=== PATIENT | male | born 1960 | race Caucasian/White ===

== ENCOUNTER 2019-04-26 14:11 | Outpatient (CLI) | payer MEDICAID, SELFPAY ==
--- NOTE | 2019-04-26 02:15 | XR_ITS ---
WS: [id number] KUB, 04/26/2019 Clinical Data: kidney stones Comparison: KUB, 01/05/2018. Findings: No abnormal intraabdominal masses or calcifications are seen. There is no dilatated small bowel or ev idence of obstruction. No renal or ureteral calculi are seen. There is osteoarthritic change with spurring at the L1-L4 leve ls. XR/XR KUB [id number] Impression: Negative KUB.
== END 2019-04-26 14:12 | disposition home or self-care (01) ==
LOC: RAD 14:16
PROVIDERS: PCP Family Medicine; Visit Provider Urology
DX: N20.0 Calculus of kidney (principal)
CPT/HCPCS: 74018; 81001

== ENCOUNTER 2022-05-23 19:26 | Emergency (ER) | payer MEDICARE, MEDICAID, SELFPAY ==
[2022-05-23 19:31] VITALS: BP 135/97; PULSE 86; RESP 18; TEMP 36.9; O2SAT 97
--- NOTE | 2022-05-23 19:31 | ECG_ITS ---
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 Measurements Intervals [place] Rate: 86 P: 56 IA: 178 QRS: 41 QRSD: 85 T: 77 QT: 315 QTc: 377 Interpretive Statements SINUS RHYTHM No previous ECG available for comparison Electronically Signed On 05-23-2022 23:43:53 DIRECTOR OF VITAL STATISTICS by Concepcion Lopez M.D. [id number] f
--- NOTE | 2022-05-23 19:39 | XRR_ITS ---
PROCEDURE INFORMATION: Exam: XR Chest Exam date and time: 05/23/2022 8:14 PM Age: 62 years old Clinical indication: Chest wall pain and other: Heart flutter; Additional info: Cp TECHNIQUE: Imaging protocol: Radiologic exam of the chest. Views: 1 view. COMPARISON: CR XR KUB [id number] 04/26/2019 2:26 PM FINDINGS: Lungs: Unremarkable. No consolidation. Pleural spaces: Unremarkable. No pleural effusion. No pneumothorax. Heart/Mediastinum: Unremarkable. No cardiomegaly. Bones/joints: Unremarkable. XR/XR chest 1V portable [id number] IMPRESSION: No acute findings.
[2022-05-23 20:37] LABS: Basophils # 0.1 10^3/uL (0.0-0.1); Basophils % 0.8 %; Eosinophils # 0.2 10^3/uL (0.0-0.8); Eosinophils % 1.5 %; Hematocrit 47.4 % (42.0-52.0); Hemoglobin 15.2 g/dL (11.7-16.6); Lymphocytes # 2.5 10^3/uL (0.8-4.8); Lymphocytes % 23.4 %; Mean Corpuscular HGB Conc 32.1 g/dL (30.0-36.0); Mean Corpuscular Hemoglobin 27.8 pg (28.0-34.0); Mean Corpuscular Volume 86.8 fl (80-94); Mean Platelet Volume 9.3 fL (7.4-10.4); Monocytes # 0.8 10^3/uL (0.2-0.9); Monocytes % 7.9 %; Neutrophils # 6.98 10^3/uL (1.8-7.7); Neutrophils % 66.1 %; Nucleated Red Blood Cells % 0 %; Platelet Count 274 10^3/cmm (130-400); Red Blood Count 5.46 10^6/uL (4.1-5.3); Red Cell Distribution Width 14.4 % (12.1-15.1); White Blood Count 10.6 10^3/uL (4.0-10.0)
--- NOTE | 2022-05-23 20:56 | W.ED.CHESTPA ---
HPI - Chest Pain General: Chief Complaint: Chest Pain Stated Complaint: CP; heart flutters Time Seen by Provider: 05/23/22 20:29 Source: patient Mode of arrival: ambulatory Limitations: no limitations History of Present Illness: 62-year-old male states has been having some intermittent chest pains over the last 2 to 3 months he states he is think about it and it is typically after he eats spicy foods he states the last time he had he had eaten [place] he states that tonight he had eaten some cheese dip with spicy Rotella on it and he started having a burning sensation in his chest he states that since resolved he denies any dyspnea denies any nausea denies any diaphoresis. Associated symptoms: Deny abdominal pain, dyspnea, fever(s), nausea or vomiting Review of Systems Const: Denies: fever(s), chills, body aches or change in appetite Eyes: Denies: blurry vision or eye discomfort ENMT: Denies: throat pain or dental pain Card: Reports: chest pain Resp: Denies: dyspnea GI: Denies: abdominal pain, nausea, vomiting or diarrhea : Denies: dysuria Musc: Denies: neck pain or back pain Skin/Breast: Denies: rash Neuro: Denies: headache(s) Psych: Denies: depression Geoffrey/Lymph: Denies: easy bruising All/Imm: Denies: urticaria PFSH ED PFSH: Medical History (Updated 05/23/22 @ 21:24 by Gilberto Perez MD) Benign prostatic hyperplasia with lower urinary tract symptoms Renal calculus, left ESWL x 2 in 2018. Status post extracorporeal shock wave therapy Surgical History History of repair of rotator cuff RIGHT History of umbilical hernia repair Family History Father , STOMACH CANCER No problems noted. Mother Hypertension Social History Smoking and tobacco status: former smoker Alcohol intake: never Adopted: No Caregiver/support person: No Lives independently: No Household members: spouse Marital status: Current occupational status: other Physical Exam Const: COMMON NORMALS: no acute distress, patient oriented x3 and healthy appearing HENMT: COMMON NORMALS: normocephalic and atraumatic HEAD & SCALP: normocephalic and atraumatic Eye: COMMON NORMALS: Equal, round and reactive pupils present and EOMs intact bilaterally PUPIL: Yes Equal, round and reactive pupils present Neck/C-Spine: COMMON NORMALS: full ROM and supple Chest: COMMONS NORMALS: normal inspection of the chest and normal palpation of entire chest wall Resp: COMMON NORMALS: normal respiratory effort, No retractions, No use of accessory muscles and clear to auscultation bilaterally AUSCULTATION: clear to auscultation bilaterally Cardio: COMMON NORMALS: regular rate, regular rhythm and No murmurs present (Cardio) RATE: regular rate RHYTHM: regular rhythm GI: COMMON NORMALS: Normal to inspection, nondistended, normoactive bowel sounds present, Soft to palpation, non-tender and no masses PALPATION: Yes Soft to palpation Extremity: COMMON NORMALS: normal to inspection and full ROM Neuro: COMMON NORMALS: patient oriented x3, moves all extremities and no focal motor deficits Psych: COMMON NORMALS: mental status grossly normal, Normal thought process present and cooperative THOUGHT PROCESS: Normal thought process present Skin: COMMON NORMALS: no rashes or lesions noted and no wounds GENERAL SKIN EXAM: no rashes or lesions noted Course Vital Signs: Vital signs: Vital Signs Temperature 98.4 F 05/23/22 19:31 Pulse Rate 86 05/23/22 19:31 Respiratory Rate 18 05/23/22 19:31 Blood Pressure 135/97 05/23/22 19:31 Pulse Oximetry 97 05/23/22 19:31 Oxygen Delivery Me thod 05/23/22 19:31 MDM - Chest Pain Medical Decision Making Patient presents here with chest pain that is likely a gastritis its only happened after he had spicy foods he is pain-free currently we will place him on Protonix he is well-appearing here currently he is stable for discharge he is to follow-up with PCP and return if worsening. Lab Data 05/23/22 20:18 05/23/22 20:18 Radiology Impressions Chest X-Ray 05/23/22 19:39 IMPRESSION: No acute findings. Laboratory Results WBC 10.6 10^3/uL (4.0-10.0) H 05/23/22 20:18 RBC 5.46 10^6/uL (4.1-5.3) H 05/23/22 20:18 Hgb 15.2 g/dL (11.7-16.6) 05/23/22 20:18 Hct 47.4 % (42.0-52.0) 05/23/22 20:18 MCV 86.8 fl (80-94) 05/23/22 20:18 MCH 27.8 pg (28.0-34.0) L 05/23/22 20:18 MCHC 32.1 g/dL (30.0-36.0) 05/23/22 20:18 RDW 14.4 % (12.1-15.1) 05/23/22 20:18 Plt Count 274 10^3/cmm (130-400) 05/23/22 20:18 MPV 9.3 fL (7.4-10.4) 05/23/22 20:18 Neut % (Auto) 66.1 % 05/23/22 20:18 Lymph % (Auto) 23.4 % 05/23/22 20:18 [place] % (Auto) 7.9 % 05/23/22 20:18 Eos % (Auto) 1.5 % 05/23/22 20:18 Baso % (Auto) 0.8 % 05/23/22 20:18 Neut # (Auto) 6.98 10^3/uL (1.8-7.7) 05/23/22 20:18 Lymph # (Auto) 2.5 10^3/uL (0.8-4.8) 05/23/22 20:18 [place] # (Auto) 0.8 10^3/uL (0.2-0.9) 05/23/22 20:18 Eos # (Auto) 0.2 10^3/uL (0.0-0.8) 05/23/22 20:18 Baso # (Auto) 0.1 10^3/uL (0.0-0.1) 05/23/22 20:18 Nucleated RBC % (auto) 0 % 05/23/22 20:18 Nucleated RBCs # 0.0 /100WBC 05/23/22 20:18 Sodium 134 mmol/L (136-145) L 05/23/22 20:18 Potassium 4.5 mmol/L (3.5-5.1) 05/23/22 20:18 Chloride 94 mmol/L (98-107) L 05/23/22 20:18 Carbon Dioxide 28 mmol/L (22-29) 05/23/22 20:18 Anion Gap 16.5 (5-19) 05/23/22 20:18 BUN 14 mg/dL (8-23) 05/23/22 20:18 Creatinine 1.0 mg/dL (0.7-1.2) 05/23/22 20:18 GFR Calculation 75.5 mL/min (90-130) L 05/23/22 20:18 Glucose 95 mg/dL (65-115) 05/23/22 20:18 Calculated Osmolality 278 mOsm/kg (285-295) L 05/23/22 20:18 Calcium 10.5 mg/dL (8.5-10.5) 05/23/22 20:18 Total Bilirubin 0.3 mg/dL (0.15-1.2) 05/23/22 20:18 AST 15 U/L (0-40) 05/23/22 20:18 ALT 25 U/L (0-41) 05/23/22 20:18 Alkaline Phosphatase 55 U/L (40-130) 05/23/22 20:18 Troponin T Baseline 8 ng/L (0-15) 05/23/22 20:18 Total Protein 7.6 g/dL (6.6-8.7) 05/23/22 20:18 Albumin 4.2 g/dL (3.5-5.2) 05/23/22 20:18 Globulin 3.4 g/dL (1.3-4.6) 05/23/22 20:18 EKG Data EKG 1: I personally reviewed and interpreted this EKG as follows: EKG interpretation date: 05/23/22 EKG interpretation time: 19:31 Interpretation: nsr hr [address] or twave abnormalities qrs 85 qtc 358 Discharge Plan Discharge Patient Disposition: Home Clinical Impression: Chest pain Condition: Stable Prescriptions: New Protonix 40 mg tablet,delayed release (DR/EC) 40 mg PO DAILY Qty: 60 0RF Discontinued ranitidine HCl 150 mg capsule 150 mg PO DAILY No Action lisinopril 40 mg tablet 40 mg PO DAILY nitrofurantoin 100 mg capsule 100 mg PO BID tamsulosin 0.4 mg capsule 0.4 mg PO BID Qty: 60 12RF Discharge Orders: Discharge ED (Routine); Ordered 05/23/22 Ordered By: Gilberto Perez Referrals: Emmett Howard [Primary Care Provider] - 1-3 days Discharge Diet: Advance as tolerated Discharge Activity: Resume usual activity Patient Instructions: Chest Pain (ED) Coding Level of Care Code ED Robotics Specialist for Markell Kolb
[2022-05-23 21:17] LABS: Troponin(5th) Baseline 8 ng/L (0-15)
[2022-05-23 21:19] LABS: Alanine Aminotransferase 25 U/L (0-41); Albumin Level 4.2 g/dL (3.5-5.2); Alkaline Phosphatase 55 U/L (40-130); Anion Gap 16.5 (5-19); Aspartate Amino Transferase 15 U/L (0-40); Blood Urea Nitrogen 14 mg/dL (8-23); Calcium 10.5 mg/dL (8.5-10.5); Carbon Dioxide 28 mmol/L (22-29); Chloride 94 mmol/L (98-107); Globulin 3.4 g/dL (1.3-4.6); Glomerular Filtration Rate 75.5 mL/min (90-130); Glucose 95 mg/dL (65-115); Osmolality Calculated 278 mOsm/kg (285-295); Potassium 4.5 mmol/L (3.5-5.1); Sodium 134 mmol/L (136-145); Total Bilirubin 0.3 mg/dL (0.15-1.2); Total Protein 7.6 g/dL (6.6-8.7)
== END 2022-05-23 21:39 | disposition home or self-care (01) ==
PROVIDERS: Emergency Provider Emergency Medicine; PCP Family Medicine
DX: R07.9 Chest pain, unspecified (principal); Z87.891 Personal history of nicotine dependence
CPT/HCPCS: 36415; 71045; 80053; 84484; 85025; 93005; 99285

== ENCOUNTER 2023-07-11 00:28 | Inpatient (IN) | payer MEDICARE, MEDICAID, SELFPAY ==
[2023-07-11] VITALS (52 sets, daily range): BP systolic 96–158; BP diastolic 60–103; PULSE 71–108; RESP 12–27; TEMP 36.4–38.1; O2SAT 90–97; BMI 41.0; BMI 43.4
--- NOTE | 2023-07-11 00:32 | XRR_ITS ---
PROCEDURE INFORMATION: Exam: XR Chest Exam date and time: 07/11/2023 12:39 AM Age: 63 years old Clinical indication: Angina; Additional info: Chest pain TECHNIQUE: Imaging protocol: Radiologic exam of the chest. Views: 1 view. COMPARISON: CR XR chest 1V portable [id number] 05/23/2022 8:14 PM FINDINGS: Lungs: No CHF/pulmonary edema. Visible lungs appear essentially clear. Pleural spaces: No visible pneumothorax. No definite pleural fluid. Heart/Mediastinum: Heart size is within normal limits. Bones/joints: No significant acute finding. XR/XR chest 1V portable [id number] IMPRESSION: 1. Essentially no definite CHF or pneumonia. 2. Other findings discussed above.
--- NOTE | 2023-07-11 00:32 | ECG_ITS ---
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 Measurements Intervals [place] Rate: 78 P: 31 MS: 160 QRS: -7 QRSD: 88 T: 63 QT: 348 QTc: 398 Interpretive Statements SINUS RHYTHM LOW QRS VOLTAGE IN PRECORDIAL LEADS [QRS DEFLECTION < 1.0 mV IN CHEST LEADS] INFERIOR MYOCARDIAL INFARCTION , POSSIBLY ACUTE [40+ ms Q WAVE AND/OR ST/T ABNORMALITY IN II/aVF] ANTEROSEPTAL MYOCARDIAL INFARCTION , POSSIBLY ACUTE [40+ ms Q WAVE IN V1-V4] ACUTE SD Compared to ECG 05/23/2022 19:31:07 Low QRS voltage now present Myocardial infarct finding now present Electronically Signed On 07-12-2023 19:17:27 CDT by Concepcion Lopez M.D. [id number]
[2023-07-11] MEDS: clopidogrel 300 mg Tablet 600 MG PO (00:37)
--- NOTE | 2023-07-11 00:37 | XACV_ITS ---
Exam Room: 2 Ht: 173 cm Wt: 122 kg BSA: 2.48 m2 Gender: Male : 1960 Any Known Allergies: No known allergies Exam Priority: Routine Indication(s): - Anterior wall UT w/PTCA and stent placement Procedure(s): Procedure Description: Diagnostic procedure Procedure Description: PCI procedure Procedure Description: Left Heart Catheterization Procedure Description: Left ventriculography Procedure Description: Drug Eluting Coronary Stent Procedure Description: PTCA Procedure Description: Coronary Angiography Veronica WEATHERS; Diagnostic Cath Status: Emergency Diagnostic Findings * Patient with approximately 2 hours of chest pain. EKG showing acute anterior wall myocardial infarction with ST elevation inferiorly as well. Procedure performed from the right radial artery. * Angiography reveals co coronary artery dominance. The left main coronary artery is normal. The LAD is occluded in the proximal portion. There is significant thrombus burden. The distal LAD is exceedingly difficult to see due to the overlap of the other vessels. Circumflex is a large vessel and gives off 2 proximal marginals and then to distal marginals. The circumflex contains mild plaquing. The right coronary artery is a very large dominant vessel and ends distally as the posterior descending artery and posterior left ventricular branch. Past the acute margin there is a 50% stenosis. In the posterior left ventricular branch there is a 60% ostial stenosis.. PCI Status: Emergency PCI LVEF Assessed: Yes PCI Indication: Immediate PCI for STEMI Interventional Findings * Initially balloon angioplasty was performed. The vessel then closed. There was significant thrombus burden. The distal vessel was nearly impossible to see due to the overlap of the other vessels. Ultimately the artery was stented. There was ROSE II flow after the stent. An Aggrastat bolus was placed into the vessel and an Aggrastat drip started. At the end of the procedure there was ROSE-3 flow. The procedure was delayed after the initial balloon angioplasty because the equipment began to alarm and simply would not function for several minutes. Decision for PCI with Surgical Consult: No PCI for Multi-vessel Disease: No Conclusions 1. Occluded left anterior descending with acute anterior wall myocardial infarction, significant left ventricular dysfunction. LAD stented. Recommendations * Medical treatment with Plavix, aspirin, MAKEDA inhibitor, beta-venessa and Aggrastat. Interventional RX Recommendation: PCI w/o planned CABG Diagnostic RX Recommendation: medical therapy and/or counseling Anticoagulation: Heparin, Tirofiban Ventriculography Ejection Fraction: 35.0 % Pressures Phase:Rest AO : 145 / 92 ( 118 ) @ 9:02:45 PM 114 / 76 ( 94 ) @ 9:02:45 PM 70 / 47 ( 60 ) @ 9:02:45 PM 90 / 63 ( 76 ) @ 9:02:45 PM 101 / 71 ( 86 ) @ 9:02:45 PM 139 / 93 ( 115 ) @ 9:02:45 PM 90 / 61 ( 75 ) @ 9:02:45 PM 117 / 89 ( 103 ) @ 9:02:45 PM / ( 99 ) @ 9:02:45 PM 128 / 97 ( 114 ) @ 9:02:45 PM 167 / 92 ( 124 ) @ 9:02:45 PM 167 / 92 ( 124 ) @ 9:02:45 PM LV : 172 / 12 / 43 @ 9:02:45 PM 181 / 13 / 49 @ 9:02:45 PM 178 / 14 / 50 @ 9:02:45 PM Valves Phase:DefaultPhase AV : 11.0 @ 2:02:45 AM AV Mean Gradient: 12.0 @ 2:02:45 AM 12.0 @ 2:02:45 AM Clinical Evaluation EBL: 5mL-10mL Procedural Details Procedure Consent Obtained. Pre-Procedure Time Out. Identified patient by full name and date of as verbalized by the patient/guarantor. Does the consent match the physician's order: N/A Emergent; Informed Consent not obtained due to time critical life threat. Accurate & Complete Informed Consent: N/A Emergent; Informed Consent not obtained due to time critical life threat. Inpatient/Outpatient History & Physical on Chart: N/A Emergent; Informed Consent not obtained due to time critical life threat. If H&P is completed, is and addenduem needed: N/A Emergent; Informed Consent not obtained due to time critical life threat; If yes, is the addendum complete: N/A Emergent; Informed Consent not obtained due to time critical life threat. Visualize and Verify Site with Patient/Guarantor: N/A. Relevant Radiology Images available: N/A Emergent; Informed Consent not obtained due to time critical life threat. The risks, benefits, and alternatives of sedation and/or procedure were discussed by physician. The patient agrees to continue. [facility] Clinical Fraility Score: 4: Vulnerable. Pin Ticket Machine Operator Indications: ACS <= 24 hours. Chest Pain Symptom Assessment: Typical Angina Symptoms. Cardiovascular Instability: Yes, if yes, Persistant Ischemic Symptoms. Correct patient, site and procedure confirmed by cath team. Current diagnosis: STEMI. PERRLA. Strong, equal hand store team leader bilaterally. Lungs clear x 5 lobes. IV Site on Arrival: 20 gauge in the right anticubital. IV Site on Arrival: 20 gauge in the left hand. IV Fluids: 0.9% NaCl at KVO. 0 mL infused prior to labour market economist. Oxygen started at 2liters/min via nasal canula. right groin was prepped with chloroprep then draped in the usual sterile fashion. right radial was prepped with chloroprep then draped in the usual sterile fashion. Physician notified. Baseline sample Acquired. HR: 86 BPM. Patient's family unavailable. Dr. Martin will call the son, Sascha, when procedure is completed. Equipment: 6F - Radial. Cardiac Cath Pack. ACIST Manifold Kit Model BT 2000. Heparinized Saline (2 units/mL), 1000 mL bag. Physician arrived. Current Diagnosis : STEMI. Physician scrubbed in. Immediate Pre-Procedure Time Out. Correct Patient: N/A Emergent; Informed Consent not obtained due to time critical life threat; Correct Procedure: N/A Emergent; Informed Consent not obtained due to time critical life threat; Correct Site: N/A Emergent; Informed Consent not obtained due to time critical life threat; Correct Patient Position: N/A Emergent; Informed Consent not obtained due to time critical life threat; Correct Supplies: N/A Emergent; Informed Consent not obtained due to time critical life threat; Dried Flammable Prep: N/A Emergent; Informed Consent not obtained due to time critical life threat; Blood Products Available: N/A Emergent; Informed Consent not obtained due to time critical life threat;. Lidocaine 1% infiltrated to the right radial. Arterial access obtained. 6 wolof XB 3.5 guide catheter was inserted over the exchange J wire. Multiple views taken of left coronary artery. [place] guidewire was advanced through the guide catheter to lesion in the prox LAD. Inflation number : 1 A AB TREK 3.00X15 RX BALLOON was prepped and advanced across the Prox LAD , then inflated to 12 ARAM for 0:20 seconds. Inflation number: 2 The AB TREK 3.00X15 RX BALLOON was reinflated across the Prox LAD, to 12 ARAM for 0:21 seconds. Balloon out. Results checked. Inflation number: 3 The AB TREK 3.00X15 RX BALLOON was reinflated across the Prox LAD, to 12 ARAM for 0:15 seconds. Balloon out. Results checked. [place] Wire out. [place] guidewire was advanced through the guide catheter to lesion in the prox LAD. PCI Indication : Immediate PCI for STEMI. Inflation Number : 4 A MDT R JOSE LUIS 3.0X22 KUSH -Lot Number# [id number] was prepped and advanced across the Prox LAD. The stent was deployed at 12 ARAM for 0:29 seconds. Exp. . Stent balloon out over wire. Results checked. Wire out. Guide catheter out over the exchange J wire. A 5 wolof JR4 catheter in over the exchange J wire. Multiple views taken of right coronary artery. Catheter removed over the exchange J wire. A 5 wolof Angled Pig catheter in over the exchange J wire. EDP Sample taken: LV 172/12,43; HR: 97 BPM; SpO2: 98%. LV gram performed in MCQUEEN @ 10 mL/second for a total of 30 mL. EDP Sample taken: LV 181/13,49; HR: 101 BPM; SpO2: 97%. Pullback taken: LV 178/14,50; AO 167/92(124); Mean: 12mmHg, Peak to Peak: 11mmHg, SEP: 26sec/min; HR: 100 BPM; SpO2: 97%. Catheter removed over the exchange J wire. Dr. Martin scrubbed out. A TR Band was successful obtaining hemostatsis at the Right Radial artery insertion site. Post Procedure: right radial pulse 3+. PERRLA. Strong, equal hand store team leader bilaterally. No VTE prophylaxis required. Medication's Wasted: Lidocaine 1% = 17 mL. Medication's Wasted: Nitro = 49.8 mg. Medication's Wasted: Heparin = 1000 Units mL. Medication's Wasted: Other = Versed 1 mg. Total IV fluids: 80 mL. Post-op diagnosis: Acute Anerior Wall UT. Complications: none. Estimated blood loss: 5mL-10mL. Responsiveness - Normal response to verbal stimuli; alert and oriented, PERRLA. Airway - Unaffected, no intervention required; spontaneous ventilation. Circulation: W/N/L, pulses unchanged. Nausea/Vomiting: No. Procedure completed. Patient transferred by wheelchair to ICU. Vital chart was stopped. Access Site Site: Right Radial artery Sheath Size: 6 Fr Hemostasis Method: TR Band Hemostasis Success: Successful Procedure Medications Start: 12:56 AM Stop: 12:56 AM Medication: Versed Amount: 1 mg Route: I.V. Start: 12:57 AM Stop: 12:57 AM Medication: Fentanyl Amount: 50 mcg Route: I.V. Start: 1:02 AM Stop: 1:02 AM Medication: Nitrogylcerin Amount: 200 mcg Route: I.A. Start: 1:19 AM Stop: 1:19 AM Medication: Versed Amount: 1 mg Route: I.V. Start: 1:34 AM Stop: 1:34 AM Medication: Fentanyl Amount: 50 mcg Route: I.V. Start: : AM Stop: 1: AM Medication: Aggrastat 12.5 mg/250 mL Amount: 62.5 ml Route: I.C. Start: 1: AM Stop: : AM Medication: Versed Amount: 1 mg Route: I.V. I, the attending physician, have reviewed and verified all procedure medications. Yes, all medications given per verbal order History/Risk Factors Obesity: Yes Report Signatures Finalized by Dr. Michael Martin MD on 07/11/2023 02:15 AM
[2023-07-11] MEDS: heparin 5,000 unit/mL INJ 1 mL 4000 UNIT IVP (00:38)
--- NOTE | 2023-07-11 00:38 | ED_ITS ---
HPI - Chest Pain 2 General: Chief Complaint: Chest Pain Stated Complaint: STEMI Time Seen by Provider: 07/11/23 00:32 History of Present Illness: Patient presents to the ER via EMS, for STEMI, STEMI alert was called. Patient said the chest pain started about 2330 radiated down into his back. [facility] transmitted twelve-lead EKG, this was sent to Dr. Martin who agreed with STEMI. EMS said they gave approximately 4 nitro, 3 and 24 mg aspirin, 1 inch Nitropaste, and 50 mcg of fentanyl. Patient has no known cardiac history however he does have hypertension and diabetes, patient rated the pain of an 8 out of 10 at the worst and is approximately 2 out of 10 currently. Review of Systems 2 General: Reports: 10 or more systems reviewed and unremarkable except in HPI and below PFSH ED 2 PFSH: Medical History (Updated 07/11/23 @ 00:46 by Michael Martin MD) Tobacco abuse Essential hypertension Obesity Diabetes Acute anterior wall [place] Status post extracorporeal shock wave therapy Renal calculus, left ESWL x 2 in 2018. Benign prostatic hyperplasia with lower urinary tract symptoms Surgical History History of umbilical hernia repair History of repair of rotator cuff RIGHT Family History Father , STOMACH CANCER No problems noted. Mother Hypertension Social History Smoking and tobacco/nicotine status: former use of tobacco/nicotine Alcohol intake: never Substance/Drug Use: never Adopted: No Caregiver/support person: No Lives independently: No Household members: spouse Marital status: Current occupational status: other Physical Exam 2 Const: COMMON NORMALS: average body habitus, no limitations, alert and well nourished HENMT: COMMON NORMALS: normocephalic, atraumatic, hearing grossly normal bilaterally, external ears normal, Normal external nose present, moist oral mucous membranes and oropharynx normal HEAD & SCALP: normocephalic and atraumatic NOSE: Normal external nose present EXTERNAL EAR: Yes external ears normal Neck/C-Spine: COMMON NORMALS: no JVD Chest: COMMONS NORMALS: normal inspection of the chest and normal palpation of entire chest wall Resp: COMMON NORMALS: normal respiratory effort, No retractions, No use of accessory muscles and clear to auscultation bilaterally AUSCULTATION: clear to auscultation bilaterally Cardio: COMMON NORMALS: no JVD, regular rate, regular rhythm, S1 normal heart sound present, S2 normal heart sound present, No gallops present (Cardio), No clicks present (Cardio), No murmurs present (Cardio) and No rub (Cardio) R ATE: regular rate RHYTHM: regular rhythm HEART SOUNDS: S1 normal heart sound present and S2 normal heart sound present GI: COMMON NORMALS: Normal to inspection, nondistended, normoactive bowel sounds present, Soft to palpation, non-tender, No hepatosplenomegaly present and no masses PALPATION: Yes Soft to palpation and Yes No hepatosplenomegaly present Neuro: SENSORIUM/ORIENTATION: Yes alert Course 2 Vital Signs: Vital signs: Vital Signs Temperature 98 F 07/11/23 00:29 Pulse Rate 108 H 07/11/23 00:29 Respiratory Rate 16 07/11/23 00:29 Blood Pressure 157/87 07/11/23 00:29 Pulse Oximetry 97 07/11/23 00:29 Oxygen Delivery Me thod Nasal Cannula 07/11/23 00:29 Oxygen Flow Rate 2 07/11/23 00:29 MDM - Chest Pain Medical Decision Making STEMI alert was called, twelve-lead EKG was obtained which showed STEMI, Dr. Martin in ER to evaluate the patient. Patient was given heparin bolus, Plavix 600 mg p.o. and taken to the Supervisor Intelligence Analyst. Differential Diagnosis Likely acute myocardial infarction Medical Records I reviewed the patient's medical records. Lab Data I reviewed the patient's lab results. 07/11/23 00:34 07/11/23 00:34 Laboratory Results WBC 15.80 10^3/uL (3.29-11.43) H 07/11/23 00:34 RBC 5.54 10^6/uL (3.85-5.65) 07/11/23 00:34 Hgb 15.30 g/dL (11.27-16.99) 07/11/23 00:34 Hct 46.5 % (37-53) 07/11/23:34 MCV 83.9 fl (82-101) 07/11/23:34 MCH 27.6 pg (27-33) 07/11/23 00:34 MCHC 32.9 g/dL (30-55) 07/11/23 00:34 RDW 14.9 % (12.1-15.1) 07/11/23 00:34 Plt Count 279 10^3/cmm (157-399) 07/11/23 00:34 MPV 9.5 fL (7.4-10.4) 07/11/23 00:34 Neut % (Auto) 77.1 % 07/11/23 00:34 Lymph % (Auto) 14.9 % 07/11/23 00:34 Eddy % (Auto) 6.1 % 07/11/23 00:34 Eos % (Auto) 1.1 % 07/11/23 00:34 Baso % (Auto) 0.4 % 07/11/23 00:34 Neut # (Auto) 12.18 10^3/uL (1.8-7.7) H 07/11/23 00:34 Lymph # (Auto) 2.4 10^3/uL (0.8-4.8) 07/11/23 00:34 Eddy # (Auto) 1.0 10^3/uL (0.2-0.9) H 07/11/23 00:34 Eos # (Auto) 0.2 10^3/uL (0.0-0.8) 07/11/23 00:34 Baso # (Auto) 0.1 10^3/uL (0.0-0.1) 07/11/23 00:34 Nucleated RBC % (auto) 0 % 07/11/23 00:34 Nucleated RBCs # 0.0 /100WBC 07/11/23 00:34 All radiology interpretation(s) finalized by discharge Coding Level of Care Code ED Telephone Surveyor for Markell Kolb
[2023-07-11 00:39] LABS: Basophils # 0.1 10^3/uL (0.0-0.1); Basophils % 0.4 %; Eosinophils # 0.2 10^3/uL (0.0-0.8); Eosinophils % 1.1 %; Hematocrit 46.5 % (37-53); Lymphocytes # 2.4 10^3/uL (0.8-4.8); Lymphocytes % 14.9 %; Mean Corpuscular HGB Conc 32.9 g/dL (30-55); Mean Corpuscular Hemoglobin 27.6 pg (27-33); Mean Corpuscular Volume 83.9 fl (82-101); Mean Platelet Volume 9.5 fL (7.4-10.4); Monocytes % 6.1 %; Neutrophils # 12.18 10^3/uL (1.8-7.7); Neutrophils % 77.1 %; Nucleated Red Blood Cells % 0 %; Platelet Count 279 10^3/cmm (157-399); Red Blood Count 5.54 10^6/uL (3.85-5.65); Red Cell Distribution Width 14.9 % (12.1-15.1)
--- NOTE | 2023-07-11 00:42 | P.HP_ITS ---
Providers/Chief Complaint 2 Admitting Physician: Veronica Primary Care Provider: Emmett Howard Chief Complaint: STEMI History of Present Illness Ronnell Chester is a 63 year old male who has no known cardiac history. He is an awful historian. He knows nothing about his health problems and knows nothing about his medications. He was tending to his grandson's girlfriend at about 11 PM which is now almost 2 hours ago and had the sudden onset of chest pain. He called 911. Their EKG showed ST elevation in the anterior precordial leads. He was brought in as a STEMI alert. He has been given 324 of aspirin, 4 sublingual nitroglycerin, fentanyl, and a heparin bolus. He is also been given Plavix. His pain was an 8 on a 10 scale previously and is now a 2 on a 10 scale. He says he does not have any allergies. He is a smoker, obese, hypertensive with diabetes. He also has nephrolithiasis, prostatic hypertrophy. He says that he cannot remember any of his medications. Review of Systems 2 Narrative: Review of systems is negative. Medications/Allergies Home Medications Medication Instructions Recorded Confirmed Last Taken Type lisinopril 40 mg tablet 40 mg PO DAILY 04/26/19 04/26/19 Unknown History nitrofurantoin 100 mg capsule 100 mg PO BID 04/26/19 04/26/19 Unknown History tamsulosin 0.4 mg capsule 0.4 mg PO BID #60 caps 04/26/19 04/26/19 Unknown Rx pantoprazole 40 mg tablet,delayed 40 mg PO DAILY #60 tabs 05/23/22 Unknown Rx release (Protonix) Allergies Allergy/AdvReac Type Severity Reaction Status Date / Time No Known Allergies Allergy Verified 05/23/22 19:37 PFSH Acute 2 PFSH: Medical History (Updated 07/11/23 @ 00:46 by Michael Martin MD) Tobacco abuse Essential hypertension Obesity Diabetes Acute anterior wall [place] Status post extracorporeal shock wave therapy Renal calculus, left ESWL x 2 in 2018. Benign prostatic hyperplasia with lower urinary tract symptoms Surgical History History of umbilical hernia repair History of repair of rotator cuff RIGHT Family History Father , STOMACH CANCER No problems noted. Mother Hypertension Social History Smoking and tobacco/nicotine status: former use of tobacco/nicotine Alcohol intake: never Substance/Drug Use: never Adopted: No Caregiver/support person: No Lives independently: No Household members: spouse Marital status: Current occupational status: other Vitals/I&O/Wt Last Vital Signs Temp 98 F 07/11/23 00:29 Pulse 108 H 07/11/23 00:29 Resp 16 07/11/23 00:29 BP 157/87 07/11/23 00:29 Pulse Ox 97 07/11/23 00:29 O2 Del Method Nasal Cannula 07/11/23 00:29 O2 Flow Rate 2 07/11/23 00:29 Weight last 48 hrs Weight 270 lb Physical Exam 2 Narrative: GENERAL: General he looks comfortable. Is obese and has poor hygiene HEENT: Exam within normal limits. NECK: Supple without jugular vein distention. The carotid upstroke is normal without bruits. BACK: Exam normal. LUNGS: Clear. HEART: Regular rate and rhythm. ABDOMEN: Benign without organomegaly or tenderness. EXTREMITIES: No edema. NEUROLOGIC: Exam normal. SKIN: Unremarkable. Data 07/11/23 00:34 07/11/23 00:34 A&P Assessment and plan (1) Acute anterior wall [place]: (2) Diabetes: (3) Obesity: (4) Essential hypertension: (5) Tobacco abuse: Plan Cardiac catheterization as soon as possible. Attestations 2 Medical Necessity Statement*: Hospitalization for management of an acute anterior wall myocardial infarction. He is hospital stay will cross 2 midnights. and Moderate Time for a total of 40 minutes, includes reviewing past or interval history, examining/interviewing patient, placing orders, counseling patient/family/other support, updating patient/family/other support, discussing plan of care with staff, communicating with other healthcare providers, documenting encounter and coordinating care Diagnoses Acute anterior wall [place] I21.09 Diabetes E11.9 Obesity E66.9 Essential hypertension I10 Tobacco abuse Z72.0
[2023-07-11 01:04] LABS: Alanine Aminotransferase 15 U/L (0-41); Albumin Level 4.2 g/dL (3.5-5.2); Alkaline Phosphatase 72 U/L (40-130); Anion Gap 13.6 (5-19); Aspartate Amino Transferase 14 U/L (0-40); Blood Urea Nitrogen 19 mg/dL (8-23); Calcium 10.3 mg/dL (8.5-10.5); Carbon Dioxide 28 mmol/L (22-29); Chloride 96 mmol/L (98-107); Creatinine Clr Calc Pharmacy 95.0296; Globulin 2.8 g/dL (1.3-4.6); Glomerular Filtration Rate 75.2 mL/min (90-130); Glucose 168 mg/dL (65-115); Magnesium 2.1 mg/dL (1.7-2.3); Osmolality Calculated 282 mOsm/kg (285-295); Potassium 4.6 mmol/L (3.5-5.1); Sodium 133 mmol/L (136-145); Total Bilirubin 0.4 mg/dL (0.15-1.2)
[2023-07-11 01:06] LABS: Troponin(5th) Baseline 27 ng/L (0-15)
[2023-07-11 01:13] LABS: NT Pro B Type Natriuretic Pept 49 pg/mL (0-125)
--- NOTE | 2023-07-11 02:07 | PC.NURSE ---
Arrival to ICU 3: Arrived @0207. Continuous cardiac monitoring initiated. Aggrastat infusing @22.5ml/hr. See Post Cardiac Cath Flow Sheet for right radial site observations.
[2023-07-11] MEDS: sodium chloride 0.9% 1,000 ML 100 ML IV (02:25)
[2023-07-11] MEDS: temazepam 15 mg Capsule PO ×2 (02:27→20:09)
--- NOTE | 2023-07-11 02:32 | ECG_ITS ---
[facility] Test Date: 2023-07-11 Pat Name: Ronnell Chester Department: Room: ICU03 Gender: Male Thread Grinder: : 1960 Requested By: Aureliano Bojorquez Order Number: [id number] Lindsay MD: Concepcion Lopez M.D. Measurements Intervals [place] Rate: 87 P: 61 SD: 194 QRS: 95 QRSD: 142 T: 64 QT: 358 QTc: 431 Interpretive Statements SINUS RHYTHM WITH SINUS ARRHYTHMIA BORDERLINE RIGHT AXIS DEVIATION [QRS AXIS > 90] INTRAVENTRICULAR CONDUCTION DELAY [130+ ms QRS DURATION] LATERAL MYOCARDIAL INFARCTION , POSSIBLY ACUTE [40+ ms Q WAVE AND/OR ST/T ABNORMALITY IN I/aVL/V5/V6] MARKED ST ELEVATION, CONSIDER ANTERIOR INJURY [MARKED ST ELEVATION W/O NORMALLY INFLECTED T-WAVE IN V2-V5] ACUTE CT Compared to ECG 07/11/2023 00:26:12 Intraventricular conduction delay now present ST (T wave) deviation now present Myocardial infarct finding still present Electronically Signed On 07-12-2023 19:48:42 CDT by Concepcion Lopez M.D. [id number]
[2023-07-11] MEDS: acetaminophen 325 mg Tablet 650 MG PO ×2 (04:37→20:05)
--- NOTE | 2023-07-11 05:19 | PC.NURSE ---
TR Band: TR band removed per protocol at 0518 clear dressing applied over gauze.
--- NOTE | 2023-07-11 06:32 | ECG_ITS ---
[facility] Test Date: 2023-07-11 Pat Name: Ronnell Chester Department: Room: ICU03 Gender: Male Icer Hand: : 1960 Requested By: Aureliano Bojoruqez Order Number: [id number] Lindsay MD: Concepcion Lopez M.D. Measurements Intervals [place] Rate: 92 P: 69 MI: 183 QRS: 104 QRSD: 138 T: 69 QT: 345 QTc: 428 Interpretive Statements SINUS RHYTHM WITH OCCASIONAL VENTRICULAR PREMATURE COMPLEXES RIGHT BUNDLE BRANCH BLOCK [120+ ms QRS DURATION, UPRIGHT V1, 40+ ms S IN I/aVL/V4/V5/V6] ANTEROLATERAL MYOCARDIAL INFARCTION , PROBABLY RECENT [40+ ms Q WAVE IN I/aVL/V3-V6] TYPE 3 BRUGADA PATTERN (NON-DIAGNOSTIC) [COVED/SADDLEBACK ST ELEVATION > 0.1mV IN 2 OF V1-3] ACUTE [place] Compared to ECG 07/11/2023 02:49:44 Ventricular premature complex(es) now present Right bundle-branch block now present.Sinus arrhythmia no longer present Intraventricular conduction delay no longer present.Myocardial infarct finding still present.ST (T wave) deviation still present Electronically Signed On 07-12-2023 19:49:54 CDT by Concepcion Lopez M.D. [id number]
--- NOTE | 2023-07-11 07:05 | P.PN_ITS ---
Subjective 2 Subjective: After the procedure earlier this morning he really has done fine. His blood pressure has come down. He still has very minimal amount of residual chest pain. No other issues. The back pain he was complaining about during the procedure has resolved. This was likely related to simply lying on his back. No complications at the entry site. Vitals/I&O/Wt Last Vital Signs Temp 97.6 F 07/11/23 05:40 Pulse 89 07/11/23 06:00 Resp 13 07/11/23 06:00 BP 109/70 07/11/23 06:00 Pulse Ox 94 07/11/23 06:00 O2 Del Method Room Air 07/11/23 06:00 O2 Flow Rate 2 07/11/23 00:29 07/10/23 07/11/23 07/11/23 22:59 06:59 14:59 Intake Total 408.333 / 408.333 Output Total 325 / 325 Balance 83.333 / 83.333 Weight last 48 hrs Weight 277 lb 11.2 oz Weight 285 lb 6.4 oz Weight 270 lb Physical Exam 2 Narrative: GENERAL: In general he looks well this morning HEENT: Exam within normal limits. NECK: Supple without jugular vein distention. The carotid upstroke is normal without bruits. BACK: Exam normal. LUNGS: Clear. HEART: Regular rate and rhythm. ABDOMEN: Benign without organomegaly or tenderness. EXTREMITIES: No edema. The entry site is flat, dry without bleeding, hematoma or vascular abnormalities. NEUROLOGIC: Exam normal. SKIN: Unremarkable. Data 07/11/23 00:34 07/11/23 00:34 A&P Assessment and plan (1) Acute anterior wall [place]: (2) Essential hypertension: (3) Tobacco abuse: (4) Diabetes: (5) Obesity: (6) Ischemic cardiomyopathy: Attestations 2 Medical Necessity Statement*: Hospitalization for management of an acute anterior wall myocardial infarction. and Moderate Time for a total of 30 minutes, includes reviewing past or interval history, examining/interviewing patient, placing orders, counseling patient/family/other support, updating patient/family/other support, discussing plan of care with staff, communicating with other healthcare providers and documenting encounter Diagnoses Acute anterior wall [place] I21.09 Essential hypertension I10 Tobacco abuse Z72.0 Diabetes E11.9 Obesity E66.9 Ischemic cardiomyopathy I25.5
[2023-07-11] MEDS: aspirin 81 mg EC Tablet PO (08:19)
[2023-07-11] MEDS: clopidogrel 75 mg Tablet PO (08:19)
[2023-07-11] MEDS: metoprolol tartrate 50 mg Tablet PO ×2 (08:19→17:58)
--- NOTE | 2023-07-11 09:09 | PC.PHAR ---
PT VERIFIED CURRENT MED LIST-LAST TAKEN YESTERDAY 07/10/23
[2023-07-11] MEDS: nitroglycerin 0.4 mg sublingual Tablet 0.400000000000000022 MG SUBLINGUAL (12:15)
--- NOTE | 2023-07-11 12:16 | PC.NURSE ---
09/[address] Martin called and notified. Give nitro tablet and due EKG
--- NOTE | 2023-07-11 12:27 | ECG_ITS ---
[facility] Test Date: 2023-07-11 Pat Name: Ronnell Chester Department: Room: ICU03 Gender: Male Monogram Operator: : 1960 Requested By: Michael Martin Order Number: [id number] Lindsay MD: Concepcion Lopez M.D. Measurements Intervals [place] Rate: 75 P: 25 UT: 169 QRS: 96 QRSD: 139 T: 46 QT: 379 QTc: 424 Interpretive Statements SINUS RHYTHM BORDERLINE RIGHT AXIS DEVIATION [QRS AXIS > 90] INTRAVENTRICULAR CONDUCTION DELAY [130+ ms QRS DURATION] ANTEROSEPTAL MYOCARDIAL INFARCTION , OF INDETERMINATE AGE [40+ ms Q WAVE IN V1-V4] Compared to ECG 07/11/2023 05:08:29 Intraventricular conduction delay now present Ventricular premature complex(es) no longer present Right bundle-branch block no longer present ST (T wave) deviation no longer present Myocardial infarct finding still present Electronically Signed On 07-12-2023 19:25:56 CDT by Concepcion Lopez M.D. [id number]
--- NOTE | 2023-07-11 12:54 | PC.NURSE ---
1220 Chest pain relieved by sublingual nitro x1, rates pain 2/10 compared to 7/[address] Martin on unit looking at EKG. No further orders.
--- NOTE | 2023-07-11 12:57 | PC.SOCIAL ---
IMM Update Pg 2 of IMM updated and reviewed with pt who verbalized understanding. Copy provided.
--- NOTE | 2023-07-11 17:51 | PC.NURSE ---
Patient removing monitoring wires and going into the restroom/ambulating in the room unassisted. Patient educated on using call light and placed back on the monitor.
[2023-07-11] MEDS: atorvastatin 40 mg Tablet 80 MG PO (20:04)
[2023-07-12] VITALS (63 sets, daily range): BP systolic 93–145; BP diastolic 46–106; PULSE 35–99; RESP 7–37; TEMP 36.2–37.1; O2SAT 90–100
--- NOTE | 2023-07-12 01:10 | PC.NURSE ---
Nurse went in to check on patient after coming off telemetry. Patient was found sitting in chair , had removed some telemetry pads and cuff. Patient states he cant sleep and just wants to go home. Nurse put patient back on telemetry but left BP cuff off to give patient a break. Explained that patient should be discharged in the morning. Offered to get patient drink or snack but patient states hes not hungry at this time. Nurse got the patient a remote for the tv and turned on TV for patient to pass the time. Patient got himself back into bed to watch TV.
[2023-07-12] MEDS: acetaminophen 325 mg Tablet 650 MG PO (02:30)
--- NOTE | 2023-07-12 02:36 | ECG_ITS ---
[facility] Test Date: 2023-07-12 Pat Name: Ronnell Chester Department: Room: ICU03 Gender: Male Supervisor Slate Splitting: : 1960 Requested By: Michael Martin Order Number: [id number] Lindsay MD: Concepcion Lopez M.D. Measurements Intervals [place] Rate: 42 P: 0 AR: 0 QRS: 197 QRSD: 164 T: 99 QT: 448 QTc: 375 Interpretive Statements IDIOVENTRICULAR RHYTHM Third-degree heart block MARKED ST ELEVATION, CONSIDER ANTERIOR INJURY [MARKED ST ELEVATION W/O NORMALLY INFLECTED T-WAVE IN V2-V5] ACUTE [place] Compared to ECG 07/11/2023 12:27:59 Idioventricular rhythm now present ST (T wave) deviation now present Myocardial infarct finding still present Electronically Signed On 07-12-2023 19:31:33 CDT by Concepcion Lopez M.D. [id number]
--- NOTE | 2023-07-12 03:05 | PC.NURSE ---
Patient had episode of HR dropping into 30s. Patient was diaphoretic but denied any chest pain and stated he felt fine. Telemetry stip showed arrest of greater than 3 seconds with what appeared to be third degree heart block in the 30s. EKG was performed which showed idioventricular rythm. Episode lasted about 30minutes when patient went into SR with 1st degree. BP remained WNL during episode. Dr. Rossi was called and made aware of event. ordered to hold metoprolol for now and he will see the patient early in the morning.
[2023-07-12 03:06] LABS: Glucose Point of Care 187 mg/dL (70-110)
--- NOTE | 2023-07-12 03:53 | PC.NURSE ---
Patient had another episode of hr dropping into 30s which only lasted about 7 min. But then had a 8sec pause and when nurse came into the room patient was unresponsive, asystole on monitor. Nurse only did 2 compressions when patient became responsive again. Code was called but cancelled. Nurse called to make aware, will be in to see the patient.
--- NOTE | 2023-07-12 04:10 | PM.MISC ---
Miscellaneous Note Note: Patient suddenly started having episodes of third-degree heart block. These are symptomatic with low blood pressure and central nervous system symptoms. He did have a lengthy episode of several seconds of asystole. The nurses did CPR briefly. He is now back in sinus rhythm. I have put his beta-venessa on hold however he will need a temporary pacemaker.This will be done emergently.
--- NOTE | 2023-07-12 04:40 | PC.NURSE ---
Patient sent to label designer for temporary pacemaker. Called and made patients stephanie Caicedo aware.
--- NOTE | 2023-07-12 04:59 | P.PCN_ITS ---
Procedure Note: Date of procedure: 07/12/23 Pre-procedure diagnosis: Third- degree heart block Post-procedure diagnosis: same Procedure: Patient sustained an acute anterior wall myocardial infarction about 48 hours ago. Approximately 1-1/2 hours ago he suddenly began episodes of third-degree heart block with short episodes of asystole requiring the nurses to perform CPR in the ICU. Patient is on a beta-venessa. The last dose was given last evening. I brought the patient down to the catheterization laboratory for purposes of placing a temporary transvenous pacemaker. He was on an external pacing device at the time of his arrival. He was prepped and draped in the standard fashion. The needle was placed in the right femoral vein. A temporary transvenous pacemaker was placed without incident. The backup rate is 70 bpm with 3 mA. No complications. No blood loss. Coding Level of Care Code Acute Code for Chg Fwd
--- NOTE | 2023-07-12 05:02 | P.PN_ITS ---
Subjective 2 Subjective: Patient went into third-degree heart block overnight. I placed a temporary transvenous pacemaker. He is utilizing the pacemaker most of the time. Vitals/I&O/Wt Last Vital Signs Temp 98.1 F 07/12/23 03:19 Pulse 38 L 07/12/23 04:30 Resp 7 L 07/12/23 04:30 BP 93/46 07/12/23 04:30 Pulse Ox 96 07/12/23 04:30 O2 Del Method Room Air 07/11/23 20:00 O2 Flow Rate 2 07/11/23 00:29 07/11/23 07/11/23 07/12/23 14:59 22:59 06:59 Intake Total 553.333 / 553.333 468.334 / 1021.667 480 / 1501.667 Output Total 800 / 800 350 / 1150 100 / 1250 Balance -246.667 / -246.667 118.334 / -128.333 380 / 251.667 Weight last 48 hrs Weight 277 lb 11.2 oz Weight 285 lb 6.4 oz Weight 270 lb Physical Exam 2 Narrative: GENERAL: In general he looks and feels well HEENT: Exam within normal limits. NECK: Supple without jugular vein distention. The carotid upstroke is normal without bruits. BACK: Exam normal. LUNGS: Clear. HEART: Regular rate and rhythm. ABDOMEN: Benign without organomegaly or tenderness. EXTREMITIES: No edema. NEUROLOGIC: Exam normal. SKIN: Unremarkable. Data 07/11/23 00:34 07/11/23 00:34 A&P Assessment and plan (1) Acute anterior wall [place]: (2) Essential hypertension: (3) Tobacco abuse: (4) Ischemic cardiomyopathy: (5) Diabetes: (6) Obesity: (7) Third degree heart block: Plan Monitor with pacemaker. Hold beta-venessa. Consider permanent wire if necessary. Attestations 2 Medical Necessity Statement*: Continued hospitalization for management of an acute anterior wall [place], ischemic cardiomyopathy and now third-degree heart block requiring temporary transvenous pacemaker. and High Time for a total of 50 minutes, includes reviewing past or interval history, examining/interviewing patient, placing orders, counseling patient/family/other support, updating patient/family/other support, discussing plan of care with staff, communicating with other healthcare providers, documenting encounter and coordinating care Diagnoses Acute anterior wall [place] I21.09 Essential hypertension I10 Tobacco abuse Z72.0 Ischemic cardiomyopathy I25.5 Diabetes E11.9 Obesity E66.9 Third degree heart block I44.2
--- NOTE | 2023-07-12 05:23 | PC.NURSE ---
0515 -- Received from laboratory secretary via bed with RN at bedside. O2 at 3L per NC. Drowsy but awakens easily and answers questions appropriately. Transvenous pacemaker in place to right groin with rate set at 70, Output set at 2, sensitivity set at 12. Good capture noted with bilat radial and pedal pulses palpable.
--- NOTE | 2023-07-12 05:26 | PC.NURSE ---
Spoke with regarding patient unable to urinate without standing up, requesting order for foely catheter while patient is immobile. gave order for león insertion.
[2023-07-12] MEDS: sodium chloride 0.9% 1,000 ML 30 ML IV (05:52)
--- NOTE | 2023-07-12 06:17 | PC.NURSE ---
Family to bedside, updated on patient condition and answered questions.
[2023-07-12] MEDS: aspirin 81 mg EC Tablet PO (09:26)
[2023-07-12] MEDS: clopidogrel 75 mg Tablet PO (09:26)
--- NOTE | 2023-07-12 11:48 | XRR_ITS ---
PROCEDURE INFORMATION: Exam: XR Chest Exam date and time: 07/12/2023 12:19 PM Age: 63 years old Clinical indication: Device placement; Cardiac pacemaker lead placement or adjustment; Patient HX: Miguel Angel cashrmaker wire verification TECHNIQUE: Imaging protocol: Radiologic exam of the chest. Views: 1 view. COMPARISON: CR (CHEST, ) 07/11/2023 12:39 AM FINDINGS: Lungs: No focal consolidation. Pleural spaces: Left costophrenic angle is excluded from the field of view. No large pleural effusion. No distinct pneumothorax. Heart/Mediastinum: Cardiomediastinal silhouette is midline and normal in size. Bones/joints: No acute osseous findings. XR/XR chest 1V portable [id number] IMPRESSION: No acute cardiopulmonary findings.
--- NOTE | 2023-07-12 12:04 | PM.MISC ---
Miscellaneous Note Note: Pacemaker is now not capturing. We have tried to minimally reposition it at the bedside with no luck. Changing the milliamperes has not helped. We will have to take him back to the catheterization laboratory and try to reposition the catheter under fluoroscopy or replace it.
--- NOTE | 2023-07-12 13:11 | P.TS_ITS ---
Transfer Summary Providers Date of Admission: 07/11/23 02:11 Date of Discharge/Transfer: 07/12/23 Attending Provider at Admission: Michael Martin MD Attending Provider at Transfer: Michael Martin MD Primary Care Provider: Emmett Howard Transfer Plans: Anticipated date of transfer: 07/12/23 . Receiving Facility: [facility] . Receiving Provider: Tushar/Teddy . Diagnoses at Discharge Discharge Diagnosis (1) Acute anterior wall ND: Status: Acute (2) Essential hypertension: Status: Acute (3) Tobacco abuse: Status: Acute (4) Ischemic cardiomyopathy: Status: Acute (5) Diabetes: Status: Acute (6) Obesity: Status: Acute (7) Third degree heart block: Status: Acute Reason for Visit Reason for Visit STEMI Brief History: Lázaro Flowers 63 and has no prior known history of heart disease. He was admitted just after midnight on the with an acute anterior wall myocardial infarction. He was hemodynamically stable. His EKG revealed ST elevation in the anterior precordial leads and to some degree in the inferior leads. Hospital Course Hospital Course He was taken to the catheterization laboratory immediately. He has somewhat unusual anatomy with a codominant system, a very large right coronary artery and of large circumflex. The right and circumflex had very minimal luminal irregularities. The LAD was occluded, was small and difficult to see. The vessel was occluded proximally with a large thrombus burden. I was able to open the vessel then stented. I used Aggrastat as well. His left ventriculogram showed an ejection fraction of 35% with dyskinesis of the apex and akinesis of the mid anterior wall. His CBC was largely unremarkable. Electrolytes, BUN and creatinine unremarkable. His glomerular filtration rate is slightly low 75. He does have glucose intolerance. his initial troponin was 27. For the first 48 hours he did not suffer any arrhythmias or congestive heart failure. Early this morning about 330 he suddenly began having episodes of third-degree heart block which were symptomatic with syncope and hypotension. In fact he had 1 long episode of ventricular standstill which prompted the nurses to do CPR briefly. He spontaneously regained his ventricular rate. I then placed a temporary transvenous pacemaker. Around the noon hour today the pacemaker stopped capturing. I took him back to the catheterization laboratory and repositioned the catheter. Because it is Friday and we have no way of getting a permanent wire in him until the earliest Friday, and he qualifies for a defibrillator having had an anterior ND with complete heart block, we have made arrangements to transfer him to [facility] in [place]. His medications will include aspirin, Plavix, lisinopril, statin. I originally had him on a beta-venessa but stopped this when he developed complete heart block. It has not yet been added back. Physical Exam Narrative: GENERAL: In general he looks and feels well now HEENT: Exam within normal limits. NECK: Supple without jugular vein distention. The carotid upstroke is normal without bruits. BACK: Exam normal. LUNGS: Clear. HEART: Regular rate and rhythm. ABDOMEN: Benign without organomegaly or tenderness. EXTREMITIES: No edema. The catheterization entry site of the right radial is flat, dry without bleeding or hematoma. The pacemaker is in the right common femoral vein. NEUROLOGIC: Exam normal. SKIN: Unremarkable. Urinary Catheter Management: Taveras: Cath Placed During This Visit: yes Reason for Continuing Indwelling Catheter: Required Immobilization for Trauma or Surgery or Anesthesia Urinary Catheter Date of Insertion: 07/12/23 Urinary Catheter Time of Insertion: 05:40 TS Data Studies Completed and Pending Pending at discharge Category Date Time Status PRINCIPAL TECHNOLOGIST request for service Routine Exams 07/12/23 04:34 Stop Req PRINCIPAL TECHNOLOGIST request for service Routine Exams 07/12/23 12:28 Ordered XR chest 1V portable [id number] Stat Exams 07/12/23 11:48 Taken Completed Studies During Hospitalization Category Date Time Status PRINCIPAL TECHNOLOGIST request for service Stat Exams 07/11/23 00:37 Completed XR chest 1V portable [id number] Stat Exams 07/11/23 00:32 Completed Laboratory Last Values WBC 15.80 10^3/uL (3.29-11.43) H 07/11/23 00:34 RBC 5.54 10^6/uL (3.85-5.65) 07/11/23 00:34 Hgb 15.30 g/dL (11.27-16.99) 07/11/23 00:34 Hct 46.5 % (37-53) 07/11/23 00:34 MCV 83.9 fl (82-101) 07/11/23 00:34 MCH 27.6 pg (27-33) 07/11/23 00:34 MCHC 32.9 g/dL (30-55) 07/11/23 00:34 RDW 14.9 % (12.1-15.1) 07/11/23 00:34 Plt Count 279 10^3/cmm (157-399) 07/11/23 00:34 MPV 9.5 fL (7.4-10.4) 07/11/23 00:34 Neut % (Auto) 77.1 % 07/11/23 00:34 Lymph % (Auto) 14.9 % 07/11/23 00:34 [place] % (Auto) 6.1 % 07/11/23 00:34 Eos % (Auto) 1.1 % 07/11/23 00:34 Baso % (Auto) 0.4 % 07/11/23 00:34 Neut # (Auto) 12.18 10^3/uL (1.8-7.7) H 07/11/23 00:34 Lymph # (Auto) 2.4 10^3/uL (0.8-4.8) 07/11/23 00:34 [place] # (Auto) 1.0 10^3/uL (0.2-0.9) H 07/11/23 00:34 Eos # (Auto) 0.2 10^3/uL (0.0-0.8) 07/11/23 00:34 Baso # (Auto) 0.1 10^3/uL (0.0-0.1) 07/11/23 00:34 Nucleated RBC % (auto) 0 % 07/11/23 00:34 Nucleated RBCs # 0.0 /100WBC 07/11/23 00:34 Sodium 133 mmol/L (136-145) L 07/11/23 00:34 Potassium 4.6 mmol/L (3.5-5.1) 07/11/23 00:34 Chloride 96 mmol/L (98-107) L 07/11/23 00:34 Carbon Dioxide 28 mmol/L (22-29) 07/11/23 00:34 Anion Gap 13.6 (5-19) 07/11/23 00:34 BUN 19 mg/dL (8-23) 07/11/23 00:34 Creatinine 1.0 mg/dL (0.7-1.2) 07/11/23 00:34 GFR Calculation 75.2 mL/min (90-130) L 07/11/23 00:34 Glucose 168 mg/dL (65-115) H 07/11/23 00:34 POC Glucose 187 mg/dL (70-110) H 07/12/23 03:02 Calculated Osmolality 282 mOsm/kg (285-295) L 07/11/23 00:34 Calcium 10.3 mg/dL (8.5-10.5) 07/11/23 00:34 Magnesium 2.1 mg/dL (1.7-2.3) 07/11/23 00:34 Total Bilirubin 0.4 mg/dL (0.15-1.2) 07/11/23 00:34 AST 14 U/L (0-40) 07/11/23 00:34 ALT 15 U/L (0-41) 07/11/23 00:34 Alkaline Phosphatase 72 U/L (40-130) 07/11/23 00:34 Troponin T Baseline 27 ng/L (0-15) H 07/11/23 00:34 NT-Pro-B Natriuret Pep 49 pg/mL (0-125) 07/11/23 00:34 Total Protein 7.0 g/dL (6.6-8.7) 07/11/23 00:34 Albumin 4.2 g/dL (3.5-5.2) 07/11/23 00:34 Globulin 2.8 g/dL (1.3-4.6) 07/11/23 00:34 Recent Clincial Data Last Vital Signs Temp 97.2 F L 07/12/23 05:15 Pulse 69 07/12/23 10:15 Resp 27 H 07/12/23 10:15 BP 126/88 07/12/23 10:15 Pulse Ox 97 07/12/23 10:15 O2 Del Method Nasal Cannula 07/12/23 10:15 O2 Flow Rate 3 07/12/23 10:00 Vital Signs Temp Pulse Resp BP Pulse Ox O2 Del Method O2 Flow Rate 07/12/23 10:15 69 27 H 126/88 97 Nasal Cannula 07/12/23 10:00 69 24 H 125/83 98 Nasal Cannula 3 07/12/23 09:45 69 24 H 115/73 96 Nasal Cannula 07/12/23 09:30 69 26 H 117/80 96 Nasal Cannula 07/12/23 09:15 69 24 H 119/78 96 Nasal Cannula 3 07/12/23 09:00 69 27 H 123/58 96 Nasal Cannula 07/12/23 08:45 69 18 108/75 96 Nasal Cannula 07/12/23 08:30 69 26 H 113/73 96 Nasal Cannula 3 07/12/23 08:15 69 26 H 121/54 95 07/12/23 08:00 69 21 H 116/76 96 07/12/23 07:45 69 22 H 128/89 93 07/12/23 07:30 69 22 H 109/75 95 07/12/23 07:15 69 27 H 145/76 95 07/12/23 07:00 69 29 H 120/63 94 07/12/23 06:45 69 24 H 137/65 95 07/12/23 06:30 69 15 120/78 95 07/12/23 06:15 69 12 126/74 94 Nasal Cannula 2 07/12/23 06:00 69 07/12/23 06:00 69 9 L 121/74 93 Nasal Cannula 2 07/12/23 05:45 69 15 112/69 94 Nasal Cannula 3 07/12/23 05:30 69 20 H 93/66 94 Nasal Cannula 3 07/12/23 05:15 97.2 F L 69 16 111/72 91 Nasal Cannula 3 07/12/23 04:30 38 L 7 L 93/46 96 07/12/23 04:15 35 L 16 109/69 07/12/23 04:00 58 L 22 H 98/49 98 07/12/23 03:45 55 L 19 H 126/85 96 07/12/23 03:30 39 L 14 100/46 96 07/12/23 03:19 98.1 F 07/12/23 03:15 96 34 H 127/90 98 07/12/23 03:00 92 37 H 142/82 97 07/12/23 02:45 45 L 22 H 113/60 97 07/12/23 02:30 24 H 99/82 94 07/12/23 02:15 99 25 H 99/82 93 07/12/23 02:00 90 16 99/82 94 07/12/23 01:45 91 24 H 99/82 92 07/12/23 01:30 91 20 H 99/82 93 07/12/23 01:15 87 26 H 99/82 90 Intake & Output/Weight 07/10/23 07/11/23 07/12/23 07/13/23 06:59 06:59 06:59 06:59 Intake Total 408.333 / 220.208 6450.667 / 1741.667 Output Total 325 / 325 1300 / 1300 Balance 83.333 / 83.333 441.667 / 441.667 Weight 277 lb 11.2 oz 279 lb 14.4 oz Procedures Performed Coronary angiography, angioplasty and stent of the left anterior descending, left ventriculography, left heart catheterization, temporary transvenous pacemaker placement with repositioning x 1. Vitals Last Vital Signs Temp 97.2 F L 07/12/23 05:15 Pulse 69 07/12/23 10:15 Resp 27 H 07/12/23 10:15 BP 126/88 07/12/23 10:15 Pulse Ox 97 07/12/23 10:15 O2 Del Method Nasal Cannula 07/12/23 10:15 O2 Flow Rate 3 07/12/23 10:00 TS Medications Medications Acetaminophen (Acetaminophen 325 Mg Tablet) 650 mg PO Q6H PRN PRN Reason: MILD PAIN Last Admin: 07/12/23 02:30 Dose: 650 mg Al Hydrox/Mg Hydrox/Simethicone (Sfwr-Gwn-Oapsiivzd-Chaz 30 Ml Udc) 30 ml PO Q15M PRN PRN Reason: INDIGESTION Aspirin (Aspirin 81 Mg Ec Tablet) 81 mg PO DAILY [facility] Last Admin: 07/12/23 09:26 Dose: 81 mg Atorvastatin Calcium (Atorvastatin 40 Mg Tablet) 80 mg PO BEDTIME [facility] Last Admin: 07/11/23 20:04 Dose: 80 mg Atropine Sulfate (Atropine 1 Mg/Ml Sdv 1 Ml) 0.5 mg IVP PRN PRN PRN Reason: Symptomatic bradycardia Clopidogrel Bisulfate (Clopidogrel 75 Mg Tablet) 75 mg PO DAILY [facility] Last Admin: 07/12/23 09:26 Dose: 75 mg Sodium Chloride (Sodium Chloride 0.9%) 1,000 mls @ 30 mls/hr IV .Q24H [facility] Last Admin: 07/12/23 05:52 Dose: 30 mls/hr Lisinopril (Lisinopril 2.5 Mg Tablet) 40 mg PO DAILY [facility] Last Admin: 07/12/23 11:33 Dose: Not Given Magnesium Hydroxide (Magnesium Hydroxide 30 Ml Udc) 30 ml PO DAILY PRN PRN Reason: CONSTIPATION Nitroglycerin (Nitroglycerin 0.4 Mg Sublingual Tablet) 0.4 mg SUBLINGUAL Q5M PRN PRN Reason: CHEST PAIN Last Admin: 07/11/23 12:15 Dose: 0.4 mg Temazepam (Temazepam 15 Mg Capsule) 15 mg PO BEDTIME PRN PRN Reason: INSOMNIA Last Admin: 07/11/23 20:09 Dose: 15 mg Discontinued Medications Clopidogrel Bisulfate (Clopidogrel 300 Mg Tablet) 600 mg PO ONCE ONE Stop: 07/11/23 00:33 Last Admin: 07/11/23 00:37 Dose: 600 mg Fentanyl (Fentanyl 50 Mcg/Ml Inj 2ml) Confirm Administered Dose 100 mcg .ROUTE .STK-MED ONE Stop: 07/11/23 00:39 Fentanyl (Fentanyl 50 Mcg/Ml Inj 2ml) Confirm Administered Dose 100 mcg .ROUTE .STK-MED ONE Stop: 07/12/23 04:33 Fentanyl (Fentanyl 50 Mcg/Ml Inj 2ml) Confirm Administered Dose 100 mcg .ROUTE .STK-MED ONE Stop: 07/12/23 12:49 Heparin Sodium (Porcine) (Heparin 5,000 Unit/Ml Inj 1 Ml) 4,000 unit IVP ONCE ONE Stop: 07/11/23 00:33 Last Admin: 07/11/23 00:38 Dose: 4,000 unit Heparin Sodium (Porcine) (Heparin 5,000 Unit/Ml Inj 1 Ml) Confirm Administered Dose 10,000 unit .ROUTE .STK-MED ONE Stop: 07/11/23 00:40 Heparin Sodium (Porcine) (Heparin 5,000 Unit/Ml Inj 1 Ml) Confirm Administered Dose 5,000 unit .ROUTE .STK-MED ONE Stop: 07/12/23 04:39 Heparin Sodium (Porcine) (Heparin 5,000 Unit/Ml Inj 1 Ml) Confirm Administered Dose 5,000 unit .ROUTE .STK-MED ONE Stop: 07/12/23 12:34 Heparin Sodium/Sodium Chloride (Heparin Drip) 25,000 unit in 500 mls @ 0 mls/hr IV LEONARD Lidocaine HCl (Xylocaine) Confirm Administered Dose 20 mls @ as directed .ROUTE .STK-MED ONE Stop: 07/11/23 00:40 Sodium Chloride (Sodium Chloride 0.9%) Confirm Administered Dose 1,000 mls @ as directed .ROUTE .STK-MED ONE Stop: 07/11/23 00:40 Tirofiban/Sodium Chloride (Aggrastat) Confirm Administered Dose 5 mg in 100 mls @ as directed .ROUTE .STK-MED ONE Stop: 07/11/23 01:39 Tirofiban/Sodium Chloride (Aggrastat) 5 mg in 100 mls @ 0 mls/hr IV .Q0M LEONARD; Protocol Lidocaine HCl (Xylocaine) Confirm Administered Dose 20 mls @ as directed .ROUTE .STK-MED ONE Stop: 07/12/23 04:33 Sodium Chloride (Sodium Chloride 0.9%) Confirm Administered Dose 250 mls @ as directed .ROUTE .STK-MED ONE Stop: 07/12/23 12:37 Lidocaine HCl (Xylocaine) Confirm Administered Dose 20 mls @ as directed .ROUTE .STK-MED ONE Stop: 07/12/23 12:37 Metoprolol Tartrate (Metoprolol Tartrate 50 Mg Tablet) 50 mg PO BID LEONARD Last Admin: 07/11/23 17:58 Dose: 50 mg Midazolam HCl (Midazolam 1 Mg/Ml Inj 2 Ml) Confirm Administered Dose 2 mg .ROUTE .STK-MED ONE Stop: 07/11/23 00:40 Midazolam HCl (Midazolam 1 Mg/Ml Inj 2 Ml) Confirm Administered Dose 2 mg .ROUTE .STK-MED ONE Stop: 07/11/23 01:23 Midazolam HCl (Midazolam 1 Mg/Ml Inj 2 Ml) Confirm Administered Dose 2 mg .ROUTE .STK-MED ONE Stop: 07/12/23 04:33 Midazolam HCl (Midazolam 1 Mg/Ml Inj 2 Ml) Confirm Administered Dose 2 mg .ROUTE .STK-MED ONE Stop: 07/12/23 12:49 Nitroglycerin (Nitroglycerin 5 Mg/Ml Sdv 10 Ml) Confirm Administered Dose 50 mg .ROUTE .STK-MED ONE Stop: 07/11/23 00:39 Allergies No Known Allergies Allergy (Verified 05/23/22 19:37) Home Medications pantoprazole 40 mg tablet,delayed release (Protonix) 40 mg PO DAILY #60 tabs 05/23/22 [Rx Confirmed 07/11/23] albuterol sulfate 90 mcg/actuation aerosol inhaler 2 inh inhalation Q6H PRN Shortness Of Breath 07/11/23 [History Confirmed 07/11/23] atorvastatin 20 mg tablet 20 mg PO DAILY 07/11/23 [History Confirmed 07/11/23] bupropion HCl 150 mg tablet,12 hr sustained-release 150 mg PO BID 07/11/23 [History Confirmed 07/11/23] dulaglutide 0.75 mg/0.5 mL subcutaneous pen injector (Trulicity) 0.75 mg SUBCUT Q7D 07/11/23 [History Confirmed 07/11/23] hydrocodone 7.5 mg-acetaminophen 325 mg tablet 1 tab PO QAM PRN Pain, Moderate 07/11/23 [History Confirmed 07/11/23] losartan 100 mg-hydrochlorothiazide 12.5 mg tablet 1 tab PO DAILY 07/11/23 [History Confirmed 07/11/23] metformin 500 mg tablet,extended release 24 hr 500 mg PO QAM 07/11/23 [History Confirmed 07/11/23] Discharge Plan Discharge Patient Disposition: Home Condition: Serious Prescriptions: No Action bupropion HCl 150 mg tablet sustained-release 12 hr 150 mg PO BID atorvastatin 20 mg tablet 20 mg PO DAILY hydrocodone-acetaminophen 7.5-325 mg tablet 1 tab PO QAM PRN (Reason: Pain, Moderate) albuterol sulfate 90 mcg/actuation HFA aerosol inhaler 2 inh INHALATION Q6H PRN (Reason: Shortness Of Breath) metformin 500 mg tablet extended release 24 hr 500 mg PO QAM losartan-hydrochlorothiazide 100-12.5 mg tablet 1 tab PO DAILY Trulicity 0.75 mg/0.5 mL pen injector 0.75 mg SUBCUT Q7D pantoprazole [Protonix] 40 mg tablet,delayed release (DR/EC) 40 mg PO DAILY Qty: 60 0RF Discharge Orders: Discharge Order (Routine); Ordered 07/12/23 Ordered By: Michael Martin Referrals: Emmett Howard [Primary Care Provider] - 07/15/23 1:35 pm (This appointment has been scheduled , will need lab test BMP for post angiogram /coronary stent /post st myocardial infarction ) Dorota De Santiago FNP [Nurse Practitioner] - 07/25/23 11:00 am ([facility] Dorota De Santiago APN Nurse ) Discharge Diet: Diabetic Discharge Activity: Limit activity as instructed Activity Restrictions/Additional Instructions: Activity will be determined upon discharge from [facility] in [place]. Transfer Attestations Time Spent in Transfer Care: greater than 30 min Quality Metrics Clinical Quality Measures [ Acute Myocardial Infaction { Clinical Trial Participant: No; Contraindication to aspirin: None; Aspirin prescribed; Contraindication to statin: None; Statin prescribed; Contraindication to PCI: None; PCI performed;}] Coding Level of Care Code 23246 Total time (in minutes) for Discharge: 50 Diagnoses Acute anterior wall ND I21.09 Essential hypertension I10 Tobacco abuse Z72.0 Ischemic cardiomyopathy I25.5 Diabetes E11.9 Obesity E66.9 Third degree heart block I44.2
--- NOTE | 2023-07-12 13:24 | ECG_ITS ---
[facility] Test Date: 2023-07-12 Pat Name: Ronnell Chester Department: Room: [facility] Gender: Male [employer] Person: : 1960 Requested By: Michael Martin Order Number: [id number] Lindsay MD: Concepcion Lopez M.D. Measurements Intervals [place] Rate: 68 P: 0 VA: 0 QRS: -46 QRSD: 165 T: 139 QT: 422 QTc: 450 Interpretive Statements ELECTRONIC VENTRICULAR PACEMAKER ABNORMAL RHYTHM ECG Compared to ECG 07/12/2023 02:42:20 Idioventricular rhythm no longer present ST (T wave) deviation no longer present Myocardial infarct finding no longer present Electronically Signed On 07-12-2023 19:39:34 CDT by Concepcion Lopez M.D. [id number]
--- NOTE | 2023-07-12 14:25 | PC.NURSE ---
Event/transfer plans note: At approximately 1136, noted on telemetry failure to capture, RT, myself and charge nurse BJ to bedside. Patient reports no symptoms, HR 30-40's. Dr. Lopez called and Verbal for chest xray obtained. Dr. Martin called and is to assess patient. at bedside pending Dr. Martin. Dr. Martin orders for slab worker for adjustment of pacing wires. Dr. Lopez arranging for transport to [facility]. Family at bedside and waiting room given updates. All belongings sent with family. Approximately 1300, [facility] accepted patient and assigned room. MICU 16. Report called to Kalani RN at [facility]. Patient back from slab worker at approximately 1327 patient is PACED, dressing is dry and intact, distal pulses present. Rate 68, MA5, Sensitivity 0.5. Patient is AOX4. see vitals charted.
--- NOTE | 2023-07-12 16:15 | PC.NURSE ---
Addendum entered by GUERO Carlisle 07/12/23 16:21: Patient in care of [facility] at 1612. Original Note: Patient in care of [facility] at 1412. Patient AOX4. See documented vitals. Patients grandson given update on plans to transport via ground ambulance verses air due to weather. Patients cellphone with patient, all other belongings with family. Paper chart including disk X2 from car barn laborer and radiology records included in packet.
--- NOTE | 2023-07-13 06:09 | PM.PROC ---
Procedure Note: Date of procedure: 07/12/23 Pre-procedure diagnosis: Temporary pacemaker not capturing Post-procedure diagnosis: same Procedure: Earlier in the day the patient had a temporary pacemaker placed via the right groin for complete heart block which was symptomatic. At around noon I received a call from the nurses stating the pacemaker was not capturing. I brought him back to the catheterization laboratory to reposition the catheter. He moves quite a bit and coughs consistently. He he shifts around in the bed and tries to lie on his side which probably dislodged the catheter. He was brought back to the catheterization laboratory and under fluoroscopy the pacemaker wire was repositioned with then normal capture. He was taken back to the ICU and prepared for transfer. No complications Coding Level of Care Code Acute Code for Markell Fwd
== END 2023-07-12 16:24 | disposition short-term general hospital (02) | DRG 322 ==
LOC: ER 00:40 → CCL 00:49 → ICU 02:11
PROVIDERS: Admitting Provider Internal Medicine Cardiovascular Disease; Emergency Provider Emergency Medicine; PCP Family Medicine; Visit Provider Internal Medicine Cardiovascular Disease
PROC: 027034Z Dilation of Coronary Artery, One Artery with Drug-eluting Intraluminal Device, Percutaneous Approach (ICD-10-PCS; principal; 2023-07-11 00:30)
PROC: 027034Z Dilation of Coronary Artery, One Artery with Drug-eluting Intraluminal Device, Percutaneous Approach (ICD-10-PCS; 2023-07-11 00:30)
PROC: 02WA3MZ Revision of Cardiac Lead in Heart, Percutaneous Approach (ICD-10-PCS; principal; 2023-07-12 04:45)
DX: I21.02 ST elevation (STEMI) myocardial infarction involving left anterior descending coronary artery (principal); Z68.41 Body mass index [BMI] 40.0-44.9, adult; I44.2 Atrioventricular block, complete; E66.9 Obesity, unspecified; I10 Essential (primary) hypertension; E11.9 Type 2 diabetes mellitus without complications; N40.0 Benign prostatic hyperplasia without lower urinary tract symptoms; I25.5 Ischemic cardiomyopathy; Z87.891 Personal history of nicotine dependence
CPT/HCPCS: 33210; 36416; 51702; 71045; 80053; 82962; 83735; 83880; 84484; 85025; 93005; 93458; 96374; 96375; 96376; 99152; 99153; 99285; C1725; C1769; C1779; C1874; C1887; C1894; C9600; J1644; J2250; J3010; J3490; J7030; J7050; Q9967